=== PATIENT | female | born 1995 | race Caucasian/White ===

== ENCOUNTER 2021-10-09 11:52 | Outpatient (CLI) | payer OTHER, SELFPAY ==
--- NOTE | 2021-10-09 | US_ITS ---
WS: [id number] TRANSVAGINAL PELVIC ULTRASOUND HISTORY: IRREGULAR PERIODS COMPARISON: None. Quality of this examination is suboptimal due to body habitus. Uterus: 6.3 cm x 4.2 cm x 3.3 cm. Anteverted uterus. The entire uterus is very difficult to visualize but appears normal. No shadowing from a fibroid suspected. Endometrium: 1.5 cm. Normal. No increased vascularity. Neither ovary is identified. No adnexal masses. No free fluid. US/US transvaginal [id number] IMPRESSION: 1. Normal endometrium. 2. Neither ovary is identified.
== END 2021-10-09 11:53 | disposition home or self-care (01) ==
LOC: RAD 11:53
PROVIDERS: Visit Provider Family Medicine
DX: N92.6 Irregular menstruation, unspecified (principal)
CPT/HCPCS: 76830